=== PATIENT | male | born 1965 | race Caucasian/White ===

== ENCOUNTER 2018-12-14 00:31 | Emergency (ER) | payer MEDICARE, MEDICAID ==
[~2018-12-14] VITALS: Ht 185.4 cm; Wt 87.3 kg
[2018-12-14 00:34] VITALS: BP 146/86
[2018-12-14] MEDS ORDERED: CIPR2.5D18 RIGHTEYE (01:00)
[2018-12-14] MEDS ORDERED: HYDROcodone/acetaminophen 10/325mg tab PO ONE (01:10)
== END 2018-12-14 01:17 | disposition home or self-care (01) ==
LOC: ER 00:32
DX: S05.01XA Injury of conjunctiva and corneal abrasion without foreign body, right eye, initial encounter (principal); K08.89 Other specified disorders of teeth and supporting structures; K02.9 Dental caries, unspecified; Z79.899 Other long term (current) drug therapy; W22.8XXA Striking against or struck by other objects, initial encounter; Y93.89 Activity, other specified; Y92.89 Other specified places as the place of occurrence of the external cause; Y99.8 Other external cause status
CPT/HCPCS: 99283